=== PATIENT | male | born 1935 | race Caucasian/White ===

== ENCOUNTER 2022-11-20 12:22 | Inpatient (IN) | payer OTHER, MEDICARE ==
[~2022-11-20] VITALS: Ht 170.2 cm; Wt 74.9 kg
[~2022-11-20 12:22] MED LIST: ACET325C5 PO; ASCO500C18 PO; ASPI-524 PO; ATOR10TA68 PO; CLOP75TA2 PO; DIVA125C2 PO; DOCU-144 PO; DONE10TA4 PO; MOM PO; POLY17PO4 PO; QUET50TA PO; SENN8.6T19 PO; TAMS-11 PO
[2022-11-20 12:25] VITALS: BP_SYST 119
--- NOTE | 2022-11-20 12:25 | NUR ---
BROUGHT IN BY [facility], PLACED IN BED #3 AND TRIAGED. REPORT GIVEN TO KIRA
[2022-11-20] MEDS ORDERED: FAMO20TA8 PO (12:54)
--- NOTE | 2022-11-20 12:54 | NUR ---
Medication reconciliation completed with information provided by LAZARUS PERRY. Any prior medication reconciliation on file was reviewed and corrected.
[2022-11-20] MEDS ORDERED: NACL 0.9% 1,000 ML IV ONE (13:00)
[2022-11-20 13:44] LABS: BASOPHILS # (AUTO) 0.1 K/uL (0.0-0.2); BASOPHILS % (AUTO) 0.6 % (0.0-2.0); EOSINOPHILS # (AUTO) 0.1 K/uL (0.0-0.4); EOSINOPHILS % (AUTO) 1.2 % (0.0-4.0); HEMATOCRIT 34.2 % (36-54); HEMOGLOBIN 10.5 g/dL (14.0-18.0); LYMPHOCYTES % (AUTO) 9.3 % (20.5-51.5); MEAN CORPUSCULAR HEMOGLOBIN 22 pg (27-31); MEAN CORPUSCULAR HGB CONC 31 % (32-36); MEAN CORPUSCULAR VOLUME 73 fL (79.0-98.0); MONOCYTES # (AUTO) 0.7 K/uL (0.0-1.0); MONOCYTES % (AUTO) 6.1 % (1.7-9.3); NEUTROPHILS # (AUTO) 8.9 K/uL (1.8-7.7); NEUTROPHILS % (AUTO) 82.8 % (40.0-70.0); PLATELET COUNT (AUTO) 471 K/uL (130-430); RED CELL DISTRIBUTION WIDTH 19.7 % (9.0-15.0); WHITE BLOOD COUNT (AUTO) 10.7 K/uL (4.8-10.8)
[2022-11-20 13:59] LABS: ANION GAP 10 (5-15); CALCIUM 9.5 mg/dL (8.4-11.0); CHLORIDE 100 mmol/L (98-107); CREATININE 1.29 mg/dL (0.55-1.30); GLUCOSE 147 mg/dL (70-99); UREA NITROGEN, BLOOD 15 mg/dL (8-21)
[2022-11-20 14:04] LABS: INR 1.1 (0.80-1.20); PROTHROMBIN TIME 11.3 SECS (9.5-12.5)
[2022-11-20 14:07] LABS: ALANINE AMINOTRANSFERASE 34 U/L (12-78); ALBUMIN 3.4 g/dL (3.4-4.8); ASPARTATE AMINOTRANSFERASE 25 U/L (10-37); LIPASE 272 U/L (73-393); TOTAL BILIRUBIN 0.2 mg/dL (0.0-1.0)
--- NOTE | 2022-11-20 14:50 | NUR ---
ER at bedside examining patient.
--- NOTE | 2022-11-20 15:22 | NUR ---
NOTIFIED ED ADMITTING, FILI, REGARDING DR. CALDERON'S REQUEST FOR ADMISSION/TRANSFER. PER DR. CALDERON, PT IS STABLE FOR TRANSFER. WILL CONTACT MACHINE DESIGN CHECKER REGARDING THIS MATTER. PER FACESHEET: JAVIER DUVALL
--- NOTE | 2022-11-20 15:29 | NUR ---
pt biba from [facility] , according to report pt was completing activites at [facility] and pt slumped over and started to drool. pt has nad, vss, even and unlabored respirations. baseline is unkown but currently pt is mumbling uncomprehensible words. pt is restsing no complaints will cont to montior.
--- NOTE | 2022-11-20 15:38 | NUR ---
spoke to kian clark case packer and sealer, regarding pt status. requested fax of facesheet and clinicals. fax: [phone]
--- NOTE | 2022-11-20 16:02 | NUR ---
pt is greek speaking, Ney and I changed his bedding vss, no changes pt resting comfortably. urine collected will cont to monitor.
--- NOTE | 2022-11-20 16:06 | NUR ---
GIVEN AUTH FOR ADMISSION AUTH : [id number] GIVEN BY INDIO
--- NOTE | 2022-11-20 16:52 | NUR ---
Admit bed requested Patient will be admitted to care of . Admitted to Tele unit. Diagnosis TIA Inpatient (Yes or No) YES Observation (Yes or No) NO Orientation concerns or request close to nursing station (Yes or No) NO Covid Status PENDING On vent or bipap NO Isolation requirements NO Needs a sitter NO From Home (Yes or if No enter name of facility) [facility] Requires Dialysis (Yes or No) NO Med Rec Completed (Yes of No) YES
--- NOTE | 2022-11-20 17:48 | NUR ---
Pt received from er ,m contracted awake noverbal aaox1 , incomprehensible words, nc use sat 100% iv bolus left ac infusing ns. placed on tele monitor sr , dnr status
--- NOTE | 2022-11-20 18:03 | NUR ---
Patient will be admitted to care of DR MARTINEZ. Admitted to TELE unit. Will go to room 124A. Belongings list completed. Complete and up to date summary report printed. SBAR report to MARÍA LOYD RN be given at bedside with opportunity for questions.
--- NOTE | 2022-11-20 18:04 | NUR ---
CONSULTATION PAGED REASON FOR CONSULTATION:TIA WAS CONSULT CALLED?Y PERSON WHO WAS NOTIFIED:PATRICE MCCLAIN CONSULTING PHYSICIAN:SHANNAN PATEL CREDIT HISTORIAN SPECIALTY:CARDIO CREDIT HISTORIAN PHONE NUMBER:[phone] REQUESTING PHYSICIAN:SPENCER PLASENCIA
--- NOTE | 2022-11-20 18:06 | NUR ---
CONSULTATION PAGED REASON FOR CONSULTATION:TIA WAS CONSULT CALLED?Y PERSON WHO WAS NOTIFIED:DTEXT MESSAGED FREDDY CHILDERS CONSULTING PHYSICIAN:FREDDY CHILDERS RADIOLOGIC TECHNOLOGY TEACHER SPECIALTY:NEURO RADIOLOGIC TECHNOLOGY TEACHER PHONE NUMBER:[phone] REQUESTING PHYSICIAN:SPENCER PLASENCIA
[2022-11-20 18:57] VITALS: BP_SYST 153
[2022-11-20 18:59] VITALS: BP_SYST 153
[2022-11-20 19:07] LABS: BILIRUBIN,URINE NEGATIVE (NEGATIVE); BLOOD, URINE 3+ (NEGATIVE); CLARITY/URINE CLOUDY (CLEAR); COLOR,URINE YELLOW (YELLOW); GLUCOSE,URINE NEGATIVE (NEGATIVE); KETONES,URINE NEGATIVE (NEGATIVE); LEUKOCYTE ESTERASE ,URINE NEGATIVE (NEGATIVE); NITRITE, URINE NEGATIVE (NEGATIVE); PROTEIN URINE NEGATIVE (NEGATIVE); UROBILINOGEN,URINE 0.2 (0.2-1.0)
[2022-11-20 19:18] LABS: BACTERIA,URINE RARE /HPF (None Seen); MUCUS,URINE 1+ /LPF (None Seen); RBC,URINE >100 /HPF (0-3); WBC,URINE 0-3 /HPF (0-3)
[2022-11-20 20:00] VITALS: BP_SYST 132
--- NOTE | 2022-11-20 20:00 | NUR ---
OPENING Patient resting in bed, unlabored breathing on 2L NC. 1L NS bolus infusing. Patient AOx1 with incomprehensible speech. No facial droop noted. Exit alarm on, bed low and locked.
--- NOTE | 2022-11-20 23:00 | NUR ---
spoke with Dr. Carrizales received order for pureed diet, informed of Lactic acid and that pt got one liter bolus. labs will be drawn in the morning. no other order at this time.
[2022-11-20] MEDS: DOCUSATE SODIUM 100 MG CAPSULE PO SCH (23:17)
[2022-11-20] MEDS: DONEPEZIL HCL 5 MG TABLET (ARICEPT) PO SCH (23:17)
[2022-11-20] MEDS: DIVALPROEX SODIUM 125 MG CAP.(DEPAKOTE SPRINKLE) PO SCH (23:17)
[2022-11-20] MEDS: FAMOTIDINE 20 MG TABLET PO SCH (23:17)
[2022-11-20] MEDS: SENNOSIDES 8.6 MG TABLET PO SCH (23:17)
[2022-11-20] MEDS: TAMSULOSIN HCL 0.4 MG CAP PO SCH (23:18)
[2022-11-20] MEDS: QUEtiapine FUMARATE 25 MG TABLET PO SCH (23:18)
[2022-11-20] MEDS: ATORVASTATIN 10 MG TABLET PO SCH (23:18)
[2022-11-21 00:26] VITALS: BP_SYST 101
[2022-11-21 06:32] LABS: BASOPHILS # (AUTO) 0.1 K/uL (0.0-0.2); BASOPHILS % (AUTO) 0.9 % (0.0-2.0); EOSINOPHILS # (AUTO) 0.3 K/uL (0.0-0.4); EOSINOPHILS % (AUTO) 5.3 % (0.0-4.0); HEMATOCRIT 27.5 % (36-54); HEMOGLOBIN 8.9 g/dL (14.0-18.0); LYMPHOCYTES # (AUTO) 2.1 K/uL (1.0-5.5); MEAN CORPUSCULAR HEMOGLOBIN 23 pg (27-31); MEAN CORPUSCULAR HGB CONC 33 % (32-36); MEAN CORPUSCULAR VOLUME 72 fL (79.0-98.0); MONOCYTES # (AUTO) 0.7 K/uL (0.0-1.0); MONOCYTES % (AUTO) 10.8 % (1.7-9.3); NEUTROPHILS # (AUTO) 3.3 K/uL (1.8-7.7); PLATELET COUNT (AUTO) 399 K/uL (130-430); RED BLOOD CELL COUNT(AUTO) 3.84 MIL/uL (4.2-6.2); RED CELL DISTRIBUTION WIDTH 19.4 % (9.0-15.0); WHITE BLOOD COUNT (AUTO) 6.4 K/uL (4.8-10.8)
[2022-11-21 06:54] LABS: ANION GAP 7 (5-15); CHLORIDE 104 mmol/L (98-107); CREATININE 1.05 mg/dL (0.55-1.30); GLUCOSE 100 mg/dL (70-99); UREA NITROGEN, BLOOD 14 mg/dL (8-21)
--- NOTE | 2022-11-21 07:49 | NUR ---
CLOSING Patient resting in bed, no distress noted. Tolerated puree diet well, meds crushed with applesauce. Incontinent of urine. Safety precautions in place. Endorsed to oncoming nurse.
[2022-11-21 08:00] VITALS: BP_SYST 109; BP_SYST 138
--- NOTE | 2022-11-21 08:00 | NUR ---
Initial notes Received patient sleeping in bed, respiration even and unlabored, no signs of distress. IV left forearm patent. All safety precaution secured, bed in low position, call light w/in reached
[2022-11-21] MEDS: DOCUSATE SODIUM 100 MG CAPSULE PO SCH ×2 (09:08→20:35)
[2022-11-21] MEDS: QUEtiapine FUMARATE 25 MG TABLET PO SCH ×4 (09:08→20:36)
[2022-11-21] MEDS: FAMOTIDINE 20 MG TABLET PO SCH ×2 (09:09→20:35)
[2022-11-21] MEDS: DIVALPROEX SODIUM 125 MG CAP.(DEPAKOTE SPRINKLE) PO SCH ×3 (09:09→20:36)
[2022-11-21] MEDS: CLOPIDOGREL BISULFATE 75 MG TABLET PO SCH (09:10)
[2022-11-21] MEDS: ASPIRIN 81 MG TAB.CHEW PO SCH (09:10)
[2022-11-21 13:22] VITALS: BP_SYST 89
--- NOTE | 2022-11-21 15:14 | NUR ---
dental technician metal at bedside
[2022-11-21 16:41] VITALS: BP_SYST 100
--- NOTE | 2022-11-21 18:47 | NUR ---
Closing notes Patient take naps intermittently, reposition every 2 hours throughout my shift, respiration even and unlabored, no signs of distress. IV left forearm patent. Incontinent, clean and dry. All safety precaution secured, bed in low position, call light w/in reached, will endorse
[2022-11-21 20:00] VITALS: BP_SYST 108
[2022-11-21] MEDS: TAMSULOSIN HCL 0.4 MG CAP PO SCH (20:35)
[2022-11-21] MEDS: SENNOSIDES 8.6 MG TABLET PO SCH (20:35)
[2022-11-21] MEDS: ATORVASTATIN 10 MG TABLET PO SCH (20:35)
[2022-11-21] MEDS: DONEPEZIL HCL 5 MG TABLET (ARICEPT) PO SCH (20:36)
[2022-11-22] VITALS (8 sets, daily range): BP systolic 84–118
[2022-11-22 07:29] LABS: BASOPHILS % (AUTO) 0.6 % (0.0-2.0); EOSINOPHILS # (AUTO) 0.4 K/uL (0.0-0.4); EOSINOPHILS % (AUTO) 5.3 % (0.0-4.0); HEMATOCRIT 28.1 % (36-54); HEMOGLOBIN 9.1 g/dL (14.0-18.0); LYMPHOCYTES % (AUTO) 30.2 % (20.5-51.5); MEAN CORPUSCULAR HEMOGLOBIN 23 pg (27-31); MEAN CORPUSCULAR HGB CONC 33 % (32-36); MEAN CORPUSCULAR VOLUME 70 fL (79.0-98.0); MONOCYTES # (AUTO) 0.6 K/uL (0.0-1.0); MONOCYTES % (AUTO) 8.9 % (1.7-9.3); NEUTROPHILS # (AUTO) 3.7 K/uL (1.8-7.7); PLATELET COUNT (AUTO) 393 K/uL (130-430); RED BLOOD CELL COUNT(AUTO) 3.99 MIL/uL (4.2-6.2); RED CELL DISTRIBUTION WIDTH 19.6 % (9.0-15.0); WHITE BLOOD COUNT (AUTO) 6.8 K/uL (4.8-10.8)
--- NOTE | 2022-11-22 07:53 | NUR ---
Closing Patient siting up in bed, watching tv, he had two soft BM during shift, unlabored breathing on 5L on oxymizer, ambulated to bathroom with assistance. Addendum: 11/22/22 at 0757 by Sparkle Nina LVN disregard note wrong patient
--- NOTE | 2022-11-22 07:58 | NUR ---
Closing patient is resting in bed, no s/s of any distress, bed at lowest position with bed alarm on, call light within reach.
[2022-11-22 08:03] LABS: ANION GAP 7 (5-15); CALCIUM 9.2 mg/dL (8.4-11.0); CHLORIDE 105 mmol/L (98-107); GLUCOSE 89 mg/dL (70-99); UREA NITROGEN, BLOOD 19 mg/dL (8-21)
[2022-11-22] MEDS: DOCUSATE SODIUM 100 MG CAPSULE PO SCH ×2 (09:34→21:31)
[2022-11-22] MEDS: ASPIRIN 81 MG TAB.CHEW PO SCH (09:35)
[2022-11-22] MEDS: QUEtiapine FUMARATE 25 MG TABLET PO SCH ×4 (09:35→21:30)
[2022-11-22] MEDS: CLOPIDOGREL BISULFATE 75 MG TABLET PO SCH (09:35)
[2022-11-22] MEDS: DIVALPROEX SODIUM 125 MG CAP.(DEPAKOTE SPRINKLE) PO SCH ×3 (09:35→21:31)
[2022-11-22] MEDS: FAMOTIDINE 20 MG TABLET PO SCH ×2 (09:35→21:31)
--- NOTE | 2022-11-22 18:45 | NUR ---
SHIFT NOTES 07A-7P: 0730AM: PATIENT IS RESTING IN BED QUIETLY. AAOX1 TO PERSON ONLY WITH EPISODE OF CONFUSION. ONLY SPEAK KYRGYZ. UNABLE TO MAKE NEEDS KNOWN. NO ADDITIONAL DISTRESS NOTED. UNABLE TO GIVE POC TO PATIENT DUE TO HIS COGNITIVE STATUS AND NO CAREGIVER AT THE BEDSIDE. BED IN LOW AND LOCK POSITION. BED ALARM ON. CALL LIGHT AND BEDSIDE TABLE WITHIN REACH. STABLE CONDITION AT THIS TIME. 1845: PATIENT IS RESTING IN BED QUIETLY. NO ADDITIONAL DISTRESS NOTED. HOURLY ROUND MADE THROUGHOUT THE SHIFT. ALL NEEDS MET. PATIENT IS A FEEDER AND TOTAL CARE. STABLE CONDITION AT THIS TIME.
[2022-11-22] MEDS ORDERED: FUROSEMIDE 20 MG TABLET PO ONE (19:30)
--- NOTE | 2022-11-22 20:00 | NUR ---
Received patient sleeping in bed, respiration even and unlabored, no signs of distress. IV left forearm patent. All safety precaution secured, bed in low position, call light w/in reached. will continue to monitor
[2022-11-22] MEDS: TAMSULOSIN HCL 0.4 MG CAP PO SCH (21:30)
[2022-11-22] MEDS: DONEPEZIL HCL 5 MG TABLET (ARICEPT) PO SCH (21:31)
[2022-11-22] MEDS: ATORVASTATIN 10 MG TABLET PO SCH (21:31)
[2022-11-22] MEDS: SENNOSIDES 8.6 MG TABLET PO SCH (21:31)
--- NOTE | 2022-11-23 | NUR ---
attempted to place condom cath, pt was agitated. will attempt again
--- NOTE | 2022-11-23 07:03 | NUR ---
condom cath placed.
--- NOTE | 2022-11-23 07:30 | NUR ---
OPENING NOTE PT RESTING IN BED, BREATHING O2 2L VIA NC. NO S/S SOB, PAIN OR DISCOMFORT. CONDOM CATHETER NOTED DRAINING WELL. ROOM IS HOT, ASKED TO LOWER THE ROOM TEMP. IV L/S TO LEFT AC REMAIN CLEAN AND INTACT. NO IV INFILTRATION OR INFECTION NOTED. CALL LIGHT WITHIN REACH. BED ALARM ON. WILL CONT TO MONITOR
[2022-11-23 08:00] VITALS: BP_SYST 109
[2022-11-23] MEDS: DOCUSATE SODIUM 100 MG CAPSULE PO SCH ×2 (09:48→21:36)
[2022-11-23] MEDS: DIVALPROEX SODIUM 125 MG CAP.(DEPAKOTE SPRINKLE) PO SCH ×3 (09:48→21:35)
[2022-11-23] MEDS: FAMOTIDINE 20 MG TABLET PO SCH ×2 (09:49→21:36)
[2022-11-23] MEDS: CLOPIDOGREL BISULFATE 75 MG TABLET PO SCH (09:49)
[2022-11-23] MEDS: QUEtiapine FUMARATE 25 MG TABLET PO SCH ×4 (09:49→21:36)
[2022-11-23] MEDS: ASPIRIN 81 MG TAB.CHEW PO SCH (09:49)
[2022-11-23 10:25] LABS: BASOPHILS % (AUTO) 0.2 % (0.0-2.0); EOSINOPHILS # (AUTO) 0.1 K/uL (0.0-0.4); EOSINOPHILS % (AUTO) 0.6 % (0.0-4.0); HEMOGLOBIN 10.2 g/dL (14.0-18.0); LYMPHOCYTES # (AUTO) 1.8 K/uL (1.0-5.5); LYMPHOCYTES % (AUTO) 13.1 % (20.5-51.5); MEAN CORPUSCULAR HEMOGLOBIN 23 pg (27-31); MEAN CORPUSCULAR HGB CONC 32 % (32-36); MEAN CORPUSCULAR VOLUME 72 fL (79.0-98.0); MONOCYTES # (AUTO) 1.1 K/uL (0.0-1.0); MONOCYTES % (AUTO) 8.2 % (1.7-9.3); NEUTROPHILS # (AUTO) 10.8 K/uL (1.8-7.7); NEUTROPHILS % (AUTO) 77.9 % (40.0-70.0); PLATELET COUNT (AUTO) 437 K/uL (130-430); RED BLOOD CELL COUNT(AUTO) 4.47 MIL/uL (4.2-6.2); RED CELL DISTRIBUTION WIDTH 19.6 % (9.0-15.0)
[2022-11-23 10:28] LABS: WHITE BLOOD COUNT (AUTO) 13.9 K/uL (4.8-10.8)
[2022-11-23 10:29] LABS: ANION GAP 11 (5-15); CALCIUM 9.7 mg/dL (8.4-11.0); CHLORIDE 100 mmol/L (98-107); CREATININE 1.58 mg/dL (0.55-1.30); GLUCOSE 131 mg/dL (70-99); UREA NITROGEN, BLOOD 26 mg/dL (8-21)
--- NOTE | 2022-11-23 11:30 | NUR ---
NOTES; CLEARED BY DR. SANCHEZ. NEEDS F/U DEIDRE IN 3 WEEKS.
[2022-11-23 11:52] VITALS: BP_SYST 130
--- NOTE | 2022-11-23 14:05 | NUR ---
INCREASED WBC,BUN, AND CR, SPOKE WITH , RECEIVED NEW ORDERS
--- NOTE | 2022-11-23 14:07 | NUR ---
CONSULTATION PAGED REASON FOR CONSULTATION:INCREASED WBC WAS CONSULT CALLED?Y PERSON WHO WAS NOTIFIED:ALPHONSE CONSULTING PHYSICIAN:ION UGALDE HUMAN INTELLIGENCE SPECIALTY:INFECTIOUS DISEASE HUMAN INTELLIGENCE PHONE NUMBER:[phone] REQUESTING PHYSICIAN:SPENCER PLASENCIA
[2022-11-23] MEDS ORDERED: 0.45% NS 1,000 ML IV ONE (14:15)
--- NOTE | 2022-11-23 14:35 | NUR ---
NOTES; CALLED FOR DETAILS. HE WILL VISIT HERE LATER
--- NOTE | 2022-11-23 14:40 | NUR ---
COLLECT UA C&S. DELIVERED THE URINE SAMPLE TO THE LAB.
[2022-11-23] MEDS: cefTRIAXone 1 GM in D5W 50 ML IV SCH (14:56)
[2022-11-23 14:58] LABS: BILIRUBIN,URINE NEGATIVE (NEGATIVE); BLOOD, URINE NEGATIVE (NEGATIVE); CLARITY/URINE CLEAR (CLEAR); COLOR,URINE YELLOW (YELLOW); GLUCOSE,URINE NEGATIVE (NEGATIVE); KETONES,URINE NEGATIVE (NEGATIVE); LEUKOCYTE ESTERASE ,URINE NEGATIVE (NEGATIVE); NITRITE, URINE POSITIVE (NEGATIVE); PH,URINE 5.5 (5.0-8.0); PROTEIN URINE NEGATIVE (NEGATIVE); UROBILINOGEN,URINE 0.2 (0.2-1.0)
[2022-11-23 15:17] LABS: BACTERIA,URINE MODERATE /HPF (None Seen); RBC,URINE 0-3 /HPF (0-3); WBC,URINE 0-3 /HPF (0-3)
[2022-11-23 15:18] LABS: MUCUS,URINE None Seen /LPF (None Seen)
--- NOTE | 2022-11-23 16:29 | NUR ---
AMRITA ([phone]) MARKETING DEPT, FROM [facility] CALLED THAT THEY CANNOT ACCEPT PT TODAY, AMY TMR OR FRIDAY. WILL F/U TMR.
--- NOTE | 2022-11-23 16:35 | NUR ---
CALLED LAB FOR BLOOD CULTURE. STAFF SAID SHE WILL F/U.
[2022-11-23 18:27] VITALS: BP_SYST 145
--- NOTE | 2022-11-23 18:27 | NUR ---
RE-INSERTED CONDOM CATH DUE TO PREVIOUS ONE IS LOOSEN OFF. CHANGED THE BED LINEN.
--- NOTE | 2022-11-23 19:00 | NUR ---
CLOSING NOTE; PT IN RESTING IN BED. IVF RUNNING ORDERED. CONDOM CATH INTACT. DRAINING BY GRAVITY. DENIES ANY PAIN OR DISCOMFORT. SAFETY AND ASPIRATION PRECAUTION IN PLACE. CALL LIGHT WITHIN REACH. WILL ENDORSE CARE TO ACADEMIC RECORDS SPECIALIST NURSE.
--- NOTE | 2022-11-23 20:00 | NUR ---
Received patient from AM nurse sleeping in bed, respiration even and unlabored, no signs of distress. IV left forearm patent running 1/2 NS @ 125cc/hr. All safety precaution secured, bed in low position, call light w/in reached. will continue to monitor DC planning . F/U with LAZARUS PERRY contact AMRITA
[2022-11-23 20:12] VITALS: BP_SYST 126
[2022-11-23 20:13] VITALS: BP_SYST 126
[2022-11-23] MEDS: DONEPEZIL HCL 5 MG TABLET (ARICEPT) PO SCH (21:35)
[2022-11-23] MEDS: TAMSULOSIN HCL 0.4 MG CAP PO SCH (21:35)
[2022-11-23] MEDS: ATORVASTATIN 10 MG TABLET PO SCH (21:36)
[2022-11-23] MEDS: SENNOSIDES 8.6 MG TABLET PO SCH (21:36)
[2022-11-24 01:24] VITALS: BP_SYST 149
--- NOTE | 2022-11-24 07:45 | NUR ---
OPENING NOTE; PT IN RESTING IN BED. PT SEEMS MORE ALERT TODAY. IVF RUNNING ORDERED. CONDOM CATH INTACT. DRAINING BY GRAVITY. DENIES ANY PAIN OR DISCOMFORT. SAFETY AND ASPIRATION PRECAUTION IN PLACE. CALL LIGHT WITHIN REACH. WILL CONT TO MONITOR
[2022-11-24 08:00] VITALS: BP_SYST 106
[2022-11-24] MEDS: DIVALPROEX SODIUM 125 MG CAP.(DEPAKOTE SPRINKLE) PO SCH ×3 (08:35→21:02)
[2022-11-24] MEDS: FAMOTIDINE 20 MG TABLET PO SCH ×2 (08:35→21:02)
[2022-11-24] MEDS: QUEtiapine FUMARATE 25 MG TABLET PO SCH ×4 (08:35→21:02)
[2022-11-24] MEDS: CLOPIDOGREL BISULFATE 75 MG TABLET PO SCH (08:35)
[2022-11-24] MEDS: DOCUSATE SODIUM 100 MG CAPSULE PO SCH ×2 (08:35→21:02)
[2022-11-24] MEDS: ASPIRIN 81 MG TAB.CHEW PO SCH (10:36)
[2022-11-24 11:34] VITALS: BP_SYST 111
[2022-11-24] MEDS: cefTRIAXone 1 GM in D5W 50 ML IV SCH (14:20)
[2022-11-24] MEDS ORDERED: 0.45% NS 500 ML IV SCH (14:30)
--- NOTE | 2022-11-24 14:34 | NUR ---
CALLED FOR HOLDING DC ORDER; HOWEVER, IS IN THE MEETING, WANTS CALL BACK LATER.
--- NOTE | 2022-11-24 15:00 | NUR ---
O2 95% @R.A NO S/S SOB/DISTRESS NOTED.
--- NOTE | 2022-11-24 15:42 | NUR ---
NOTES; CALLED AGAIN, HE WANTS TO F/U WITH I.D
[2022-11-24] MEDS: 0.45% NACL 1,000 ML IV SCH ×2 (15:54→23:15)
--- NOTE | 2022-11-24 16:00 | NUR ---
NOTES; CHARGE NURSE SAID (I.D) WILL HE HERE TONIGHT TO ASSESS PT.
[2022-11-24 16:41] LABS: BASOPHILS % (AUTO) 0.4 % (0.0-2.0); EOSINOPHILS # (AUTO) 0.5 K/uL (0.0-0.4); EOSINOPHILS % (AUTO) 5.1 % (0.0-4.0); HEMATOCRIT 29.4 % (36-54); HEMOGLOBIN 9.5 g/dL (14.0-18.0); LYMPHOCYTES # (AUTO) 1.6 K/uL (1.0-5.5); LYMPHOCYTES % (AUTO) 17.7 % (20.5-51.5); MEAN CORPUSCULAR HEMOGLOBIN 23 pg (27-31); MEAN CORPUSCULAR HGB CONC 32 % (32-36); MEAN CORPUSCULAR VOLUME 71 fL (79.0-98.0); MONOCYTES # (AUTO) 0.7 K/uL (0.0-1.0); MONOCYTES % (AUTO) 7.6 % (1.7-9.3); NEUTROPHILS # (AUTO) 6.5 K/uL (1.8-7.7); NEUTROPHILS % (AUTO) 69.2 % (40.0-70.0); PLATELET COUNT (AUTO) 356 K/uL (130-430); RED BLOOD CELL COUNT(AUTO) 4.15 MIL/uL (4.2-6.2); RED CELL DISTRIBUTION WIDTH 19.9 % (9.0-15.0); WHITE BLOOD COUNT (AUTO) 9.3 K/uL (4.8-10.8)
[2022-11-24 16:47] LABS: ANION GAP 7 (5-15); CALCIUM 8.9 mg/dL (8.4-11.0); CHLORIDE 101 mmol/L (98-107); CREATININE 1.29 mg/dL (0.55-1.30); GLUCOSE 154 mg/dL (70-99); UREA NITROGEN, BLOOD 20 mg/dL (8-21)
[2022-11-24 17:17] VITALS: BP_SYST 106
--- NOTE | 2022-11-24 18:51 | NUR ---
CLOSING NOTE; PT IN RESTING IN BED. IVF RUNNING ORDERED. NO IV INFILTRATION OR INFECTION. CONDOM CATH INTACT. DRAINING BY GRAVITY. CLEAR SPEECH. DENIES ANY PAIN OR DISCOMFORT. SAFETY AND ASPIRATION PRECAUTION IN PLACE. CALL LIGHT WITHIN REACH. WILL ENDORSE CARE TO CIVIL DEFENSE DIRECTOR NURSE.
[2022-11-24 19:00] VITALS: BP_SYST 109
--- NOTE | 2022-11-24 19:15 | NUR ---
change of shift.pt.presents quiescent affect.pt.presents iv access intact location lt.forearm.pt.presents condom cath intact.language barrier extant;language unk.general status stable.respiratory status stable.unlabored@room air.call light/telephone w/in access of the pt.
[2022-11-24 20:00] VITALS: BP_SYST 108
--- NOTE | 2022-11-24 20:00 | NUR ---
pt.assessed.v/s assessed values wnl.o2-sat%=96%.per flacc pain mgx pt.absent facial grimaces/body posturing. pt.assessed for cleanliness pt.repositioned.iv access/condom cath intact.call light/telephone placed w/in access of the pt.
--- NOTE | 2022-11-24 21:00 | NUR ---
2100p medications administered.pt.capable to ingest the po medications w/out difficulty.per flacc pain mgx pt.absent facial grimaces/body posturing.call light/telephone placed w/in access of the pt.
[2022-11-24] MEDS: DONEPEZIL HCL 5 MG TABLET (ARICEPT) PO SCH (21:01)
[2022-11-24] MEDS: SENNOSIDES 8.6 MG TABLET PO SCH (21:02)
[2022-11-24] MEDS: ATORVASTATIN 10 MG TABLET PO SCH (21:02)
[2022-11-24] MEDS: TAMSULOSIN HCL 0.4 MG CAP PO SCH (21:02)
--- NOTE | 2022-11-24 22:00 | NUR ---
pt.assessed.pt.quiescent.02-fri%=96%.iv access/condom cath intact.per flacc pain mgx pt.absent facial grimaces/body posturing.pt.assessed for cleanliness.pt.repositioned.call light/telephone placed w/in access of the pt.
[2022-11-25] VITALS: BP_SYST 110
--- NOTE | 2022-11-25 | NUR ---
pt.assessed.v/s assessed values wnl.o2-sat%=96%.per flacc pain mgx pt.absent facial grimaces/body posturing. pt.assessed for cleanliness.pt.repositioned.iv access/turner cath intact.call light/telephone placed w/in access of the pt.
--- NOTE | 2022-11-25 02:00 | NUR ---
pt.assessed.pt.quiescent.02-sat%=96%.per flacc pain mgx pt.absent facial grimaces/body posturing.pt.assessed for cleanliness. pt.repositioned.iv access/turner cath intact.ca;ght/telep apce wiacs of thpt.
[2022-11-25] MEDS: 0.45% NACL 1,000 ML IV SCH (03:02)
--- NOTE | 2022-11-25 04:00 | NUR ---
pt.assessed.pt.quiescent.02-sat%=96%.per flacc pain mgx pt.absent facial grimaces/body posturing.pt.assessed for cleanliness pt.repositioned.iv access/condom cath intact;patent.call light/telephone placed w/in access of the pt.
[2022-11-25 08:29] VITALS: BP_SYST 125
[2022-11-25] MEDS: QUEtiapine FUMARATE 25 MG TABLET PO SCH (08:37)
[2022-11-25] MEDS: DOCUSATE SODIUM 100 MG CAPSULE PO SCH (08:37)
[2022-11-25] MEDS: CLOPIDOGREL BISULFATE 75 MG TABLET PO SCH (08:37)
[2022-11-25] MEDS: FAMOTIDINE 20 MG TABLET PO SCH (08:38)
[2022-11-25] MEDS: DIVALPROEX SODIUM 125 MG CAP.(DEPAKOTE SPRINKLE) PO SCH (08:38)
[2022-11-25] MEDS: ASPIRIN 81 MG TAB.CHEW PO SCH (08:40)
[2022-11-25] MEDS ORDERED: LEVO750T64 PO (11:00)
[2022-11-25 11:10] VITALS: BP_SYST 139
[2022-11-25 11:13] VITALS: BP_SYST 125
--- NOTE | 2022-11-25 12:01 | NUR ---
D/C Patient Patient discharge to [facility]. Report given to April BUTLER at [facility]. Patient in stable condition, A/Ox1, no signs of distress/SOB. ID band removed, IV catheter removed, intact and dressing applied, no active bleeding. All belongings sent with patient. 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
== END 2022-11-25 12:00 | DRG 133 ==
LOC: SED 12:22 → STU 16:30 → SMU 11-24 19:43
PROVIDERS: ADMIT Internal Medicine; ATTEND Internal Medicine
PROC: 4A00X4Z Measurement of Central Nervous Electrical Activity, External Approach (ICD-10-PCS; principal; 2022-11-21)
DX: J96.00 Acute respiratory failure, unspecified whether with hypoxia or hypercapnia (principal); N17.0 Acute kidney failure with tubular necrosis; G93.40 Encephalopathy, unspecified; F01.50 Vascular dementia, unspecified severity, without behavioral disturbance, psychotic disturbance, mood disturbance, and anxiety; R55 Syncope and collapse; E87.20 Acidosis, unspecified; N17.9 Acute kidney failure, unspecified; I50.9 Heart failure, unspecified; Z20.822 Contact with and (suspected) exposure to COVID-19; I11.0 Hypertensive heart disease with heart failure; E78.5 Hyperlipidemia, unspecified; F41.9 Anxiety disorder, unspecified; D64.9 Anemia, unspecified; N40.0 Benign prostatic hyperplasia without lower urinary tract symptoms; Z86.73 Personal history of transient ischemic attack (TIA), and cerebral infarction without residual deficits
CPT/HCPCS: 36415; 70450-TC; 71045; 76376; 80048; 80053; 81000; 83605; 83690; 83735; 83880; 84484; 85025; 85610-TC; 85730-TC; 87040; 87081; 87086; 93005; 93306; 95816; 96360; 99285; G0378; J0696; J7060